=== PATIENT | female | born 1950 | race Caucasian/White ===

== ENCOUNTER 2019-03-06 08:44 | Day surgery (SDC) | payer OTHER ==
[2019-03-06 09:13] VITALS: BMI 32.8
[2019-03-06 10:45] VITALS: TEMP 97.2
[2019-03-06 13:35] VITALS: BP 130/71; PULSE 51
--- NOTE | 2019-03-07 13:35 | PATH ---
Surgical Pathology Report Patient Name: BHAVNA RIVERA [facility]. Rec. #: [id number] /Age/Gender: 1950 (Age: 68) / F Account: [id number] Location: U-ENDOSCOPY Taken: 03/06/2019 Received: 03/06/2019 Reported: 03/07/2019 Physicians: Tushar Hodge M.D. Specimen(s) Received A: BODY B: GE JUNCTION C: MID ESOPHAGUS Clinical History Dysphagia, early satiety. Thickened fold GE junction, erythema body Final Diagnosis A. BODY, BIOPSY: GASTRIC MUCOSA WITH CHRONIC GASTRITIS. IMMUNOSTAIN FOR H. PYLORI IS NEGATIVE. NEGATIVE FOR INTESTINAL METAPLASIA. B. GE JUNCTION, BIOPSY: GASTROESOPHAGEAL JUNCTIONAL MUCOSA WITH CHANGES CONSISTENT WITH MILD REFLUX ESOPHAGITIS. ACUTE AND CHRONIC INFLAMMATION IN THE COLUMNAR EPITHELIUM. NEGATIVE FOR INTESTINAL METAPLASIA. C. ESOPHAGUS, BIOPSY: ESOPHAGEAL MUCOSA WITH NO SIGNIFICANT PATHOLOGIC CHANGE. NEGATIVE FOR EOSINOPHILIC ESOPHAGITIS. SEPARATE SMALL FRAGMENT OF COLUMNAR EPITHELIUM WITH NO DIAGNOSTIC ABNORMALITIES. NEGATIVE FOR INTESTINAL METAPLASIA. Electronically Signed Yoko Ward M.D. Gross Description A. Received in formalin, labeled "body" are two pieces of light ortega tissue measuring 0.2 cm and 0.5 cm in greatest dimension. Entirely submitted in one cassette. B. Received in formalin, labeled GE junction" are three pieces of light ortega tissue ranging from 0.1-0.2 cm in greatest dimension. Entirely submitted in one cassette. C. Received in formalin, labeled "mid esophagus" are two pieces of light ortega tissue each up to 0.2 cm in greatest dimension. Entirely submitted in one cassette AE/03/06/2019 ebram/03/06/2019
== END 2019-03-06 12:15 | disposition home or self-care (01) ==
LOC: JASU-ENDO 08:44
PROVIDERS: ATTEND Internal Medicine Gastroenterology
PROC: 0DB78ZX Excision of Stomach, Pylorus, Via Natural or Artificial Opening Endoscopic, Diagnostic (ICD-10-PCS; 2019-03-06)
PROC: 0DB58ZX Excision of Esophagus, Via Natural or Artificial Opening Endoscopic, Diagnostic (ICD-10-PCS; principal; 2019-03-06 12:00)
DX: K21.0 Gastro-esophageal reflux disease with esophagitis (principal); I10 Essential (primary) hypertension
CPT/HCPCS: 88305-TC; 88342-TC

== ENCOUNTER 2019-03-31 05:08 | Day surgery (SDC) | payer OTHER | END 2019-03-31 11:30 | disposition home or self-care (01) | LOC: JASU-SURG 05:08 ==

== ENCOUNTER 2019-04-02 11:35 | Day surgery (SDC) | payer OTHER ==
[2019-04-01 12:32] VITALS: BMI 30.5
[2019-04-02] MEDS ORDERED: MIDAZOLAM HCL 2 MG/2 ML SINGLE DOSE VIAL ONE (12:52)
[2019-04-02] MEDS ORDERED: PROPOFOL 20 ML ONE (12:52)
--- NOTE | 2019-04-02 13:12 | HP ---
Admitting History and Physical - Admission Chief Complaint: Post menopausal bleeding History of Present Illness: Sugey 68yo F here with postmenopausal bleeding, with simple hyperplasia without atypia. Has longstanding history of PMB. Numerous D&Cs/ biopsies- mostly benign. History Source: Patient Limitations to Obtaining History: Language Barrier - Past Medical History Gastrointestinal: Yes: Other (polyps) ...: No - Past Surgical History Past Surgical History: Yes: (x3) - Smoking History Smoking history: Never smoked Have you smoked in the past 12 months: No If you are a former smoker, when did you quit?: ''80'S SOCIALLY - Alcohol/Substance Use Hx Alcohol Use: No Home Medications - Allergies Allergies/Adverse Reactions: Allergies Allergy/AdvReac Type Severity Reaction Status Date / Time No Known Drug Allergies Allergy Unverified 03/31/19 11:57 shrimp Allergy Verified 04/01/19 12:44 - Home Medications Home Medications: Ambulatory Orders Lisinopril 10 mg PO HS 03/06/19 Family Disease History - Family Disease History Family Disease History: CA: Father (colon cancer) Physical Examination Vital Signs: Vital Signs Temperature 97.9 F 04/02/19 12:00 Pulse Rate 62 04/02/19 12:00 Respiratory Rate 20 04/02/19 12:00 Blood Pressure 147/77 04/02/19 12:00 O2 Sat by Pulse Oximetry (%) 98 04/02/19 12:01 Constitutional: Yes: Well Nourished, No Distress, Calm Eyes: Yes: WNL, Conjunctiva Clear, EOM Intact HENT: Yes: WNL, Atraumatic, Normocephalic Neck: Yes: WNL, Supple, Trachea Midline Cardiovascular: Yes: WNL, Regular Rate and Rhythm Respiratory: Yes: WNL, Regular, CTA Bilaterally Gastrointestinal: Yes: WNL, Normal Bowel Sounds Musculoskeletal: Yes: WNL Extremities: Yes: WNL Edema: No Integumentary: Yes: WNL Neurological: Yes: WNL, Alert, Oriented ...Motor Strength: WNL Psychiatric: Yes: WNL Problem List - Problems (1) Post-menopausal bleeding Code(s): N95.0 - POSTMENOPAUSAL BLEEDING Assessment/Plan 68yo with PMB here for diagnostic hysteroscopy, D&C- given simple hyperplasia w/ o atypia in the office on biopsy All questions answered Risk to procedure reviewed Consents signed Proceed to OR Arianne Lafleur MD
[2019-04-02] MEDS ORDERED: LIDOCAINE HCL/PF 2% SDV 5ML VIAL ONE (13:17)
[2019-04-02] MEDS ORDERED: DEXAMETHASONE SOD PHOSPHATE 4 MG/1 ML VIAL ONE (13:22)
--- NOTE | 2019-04-02 14:28 | OP ---
Operative Note - Note: Pre-Operative Diagnosis: Postmenopausal Bleeding Operation: Diagnostic Hysteroscopy, Dilation & Curretage Findings: Stenotic cervical os, Thickened endometrium, normal ostia bilaterally Post-Operative Diagnosis: Same as Pre-op Surgeon: Sheri Lafleur Anesthesia: MAC Specimens Removed: Endometrial Curretage Estimated Blood Loss (mls): 20 Fluid Volume Replaced (mls): 500 Operative Report Dictated: Yes
[2019-04-02] MEDS ORDERED: oxyCODONE HCL 5 MG TABLET PO PRN ×2 (15:22)
[2019-04-02] MEDS ORDERED: ONDANSETRON 4 MG/2 ML VIAL IVPUSH PRN (15:22)
[2019-04-02] MEDS ORDERED: LACTATED RINGERS SOLUTION 1,000 ML IV SCH (15:30)
[2019-04-02 16:43] VITALS: TEMP 98
[2019-04-02 17:38] VITALS: BP 162/79; PULSE 65
--- NOTE | 2019-04-03 00:14 | OP ---
DATE OF OPERATION: 04/02/2019 PREOPERATIVE DIAGNOSIS: Postmenopausal bleeding, history of simple hyperplasia without atypia. POSTOPERATIVE DIAGNOSIS: Postmenopausal bleeding, history of simple hyperplasia without atypia. PROCEDURE: Diagnostic hysteroscopy, dilation and curettage. ANESTHESIA: MAC SURGEON: Janette Joseph MD ESTIMATED BLOOD LOSS: 20 INTRAVENOUS FLUIDS: 500 mL URINE OUTPUT: Not measured FINDINGS: Stenotic endocervical canal, thickened endometrium, normal ostia bilaterally. COMPLICATIONS: None CONDITION: Stable to recovery room. DESCRIPTION OF PROCEDURE: After the appropriate consents were signed, the patient was taken to the operating room where anesthesia was administered. She was placed in the dorsal lithotomy position. The operative field was then prepped and draped in the normal sterile fashion. A timeout was performed confirming the correct patient and procedure. A sterile speculum was inserted into the vagina with good visualization of the cervix. The anterior lip of the cervix was grasped with a single-toothed tenaculum. Using the Deras dilators, the cervix was dilated to accommodate a 5-mm hysteroscope. The cervix was noted to be stenotic and multiple attempts were done to try to achieve entry into the endometrial cavity. The 5-mm diagnostic hysteroscope was then introduced under fluid distention. While in the endocervical canal, a false tract was noted, followed through. There appeared to be a very small perforation with visualization of the abdominal cavity; however, no bleeding was noted at the perforation site. The scope was then gently retracted and then the true endocervical canal was then identified and carried through until the endometrial cavity was seen. The endometrial cavity was inflated with the fluid distention. Multiple synechiae and thickened endometrium were noted. The patient's ostia bilaterally were both seen. The hysteroscope was then removed. Then gentle curettage was undertaken until a gritty texture was noted in the 4 quadrants. The endometrial curettage samples were sent off for pathology. No bleeding was noted. The anterior lip of the cervix was released from the tenaculum. The bite sites were noted to be hemostatic. Again, no bleeding was noted from the cervix or from the internal os. The speculum was then removed. The patient was taken out of lithotomy position. She was taken from the operating room to the recovery area in stable condition. JANETTE JOSEPH MD MG/[id number]
--- NOTE | 2019-04-04 09:59 | PATH ---
Surgical Pathology Report Patient Name: BHAVNA RIVERA [facility]. Rec. #: [id number] /Age/Gender: 1950 (Age: 68) / F Account: [id number] Location: [facility] SURGICAL Taken: 04/02/2019 Received: 04/03/2019 Reported: 04/04/2019 Physicians: Sheri Lafleur Specimen(s) Received ENDOMETRIAL CURETTINGS Clinical History Postmenopausal bleeding Final Diagnosis ENDOMETRIUM, CURETTING: DISORDERED PROLIFERATIVE ENDOMETRIUM WITH AREAS WITH SECRETORY CHANGE. NO ENDOMETRIAL HYPERPLASIA OR CARCINOMA IDENTIFIED. Comment: Also see [id number]. Electronically Signed Shaggy Dumont M.D. Gross Description Received in formalin labeled "endometrial curettings," is a 3.5 x 2.3 x 0.3 cm aggregate of ortega portions of soft tissue admixed with blood clot. The formalin is filtered and the specimen is entirely submitted in 2 cassettes. /04/03/2019 saudi/04/03/2019
== END 2019-04-02 18:20 | disposition home or self-care (01) ==
LOC: JASU-SURG 11:35
PROVIDERS: ATTEND Obstetrics & Gynecology
PROC: 0UDB7ZX Extraction of Endometrium, Via Natural or Artificial Opening, Diagnostic (ICD-10-PCS; principal; 2019-04-02 13:00)
PROC: 0UJD8ZZ Inspection of Uterus and Cervix, Via Natural or Artificial Opening Endoscopic (ICD-10-PCS; 2019-04-02 13:00)
DX: N95.0 Postmenopausal bleeding (principal)
CPT/HCPCS: 88305-TC; 94760